=== PATIENT | female | born 1975 | race Caucasian/White ===

== ENCOUNTER → 2019-03-10 16:00 | Outpatient (CLI) | payer OTHER, SELFPAY ==
--- NOTE | 2019-03-10 | DI.MG.S_ITS ---
BILATERAL DIGITAL SCREENING MAMMOGRAM 3D/2D WITH CAD: 03/10/2019 CLINICAL: Routine screening. Comparison is made to exams dated: 10/28/2012 mammogram, 05/01/2011 mammogram - [facility], and 03/26/2008 mammogram - [facility]. The tissue of both breasts is heterogeneously dense. This may lower the sensitivity of mammography. Current study was also evaluated with a Computer Aided Detection (CAD) system. No significant masses, calcifications, or other findings are seen in either breast. There has been no significant interval change. IMPRESSION: NEGATIVE There is no mammographic evidence of malignancy. A 1 year screening mammogram is recommended. This exam was interpreted at Station ID: [id number]. NOTE: For mammograms, a report in lay terms will be sent to the patient. Approximately 15% of breast malignancies will not be visualized mammographically. In the management of a palpable breast mass, a negative mammogram must not discourage biopsy of a clinically suspicious lesion. Electronically Signed By: Leo guillen/benita:03/10/2019 19:16:06 letter sent: Normal Exam ACR BI-RADS Category 1: Negative [id number]
== END ==
PROVIDERS: PCP Nurse Practitioner Family; Visit Provider Nurse Practitioner Family
DX: Z12.31 Encounter for screening mammogram for malignant neoplasm of breast (principal)
CPT/HCPCS: 77063; 77067

== ENCOUNTER → 2019-04-25 10:12 | Outpatient (CLI) | payer OTHER, SELFPAY ==
[2019-04-25 11:28] LABS: Alanine Aminotransferase 11 IU/L (<35); Albumin 4.4 g/dL (3.5-5.0); Albumin Globulin Ratio 1.3 (1.0-2.8); Alkaline Phosphatase 58 U/L (38-126); Aspartate Aminotransferase 16 IU/L (14-36); BUN Creatinine Ratio 12.9 (6-22); Bilirubin Total 0.7 mg/dL (0.2-1.3); Blood Urea Nitrogen 9 mg/dL (7-17); Calcium 9.2 mg/dL (8.4-10.2); Carbon Dioxide 24 mmol/L (22-32); Chloride 105 mmol/L (98-107); Cholesterol 206 mg/dL (140-199); Estimated Glomerular Filt Rate > 60.0 mL/min (>60); Globulin 3.3 g/dL (1.7-4.1); Glucose 87 mg/dL (70-100); HDL Cholesterol 53 mg/dL (40-60); HEMOLYSIS < 15 (0-50); LDL Cholesterol Calculated 133 mg/dL (<100); Potassium 4.3 mmol/L (3.4-5.1); Sodium 140 mmol/L (137-145); Total Protein 7.7 g/dL (6.3-8.2); Triglycerides 98 mg/dL (35-150)
[2019-04-25 11:33] LABS: Hematocrit 32.5 % (36-46); Hemoglobin 10.5 g/dL (12.0-16.0); Mean Corpuscular HGB Conc 32.1 % (30-36); Mean Corpuscular Volume 68.3 fL (80-100); Platelet Count 263 X10^3/uL (150-400); Red Blood Cell Count 4.76 X10^6/uL (4.0-5.2); Red Cell Distribution Width 17.8 % (11.6-14.8); White Blood Cell Count 6.5 X10^3/uL (4.5-11.0)
== END ==
PROVIDERS: PCP Nurse Practitioner Family; Referring Provider Nurse Practitioner Family; Visit Provider Nurse Practitioner Family
DX: Z00.00 Encounter for general adult medical examination without abnormal findings (principal); Z13.6 Encounter for screening for cardiovascular disorders
CPT/HCPCS: 36415; 80053; 80061; 85027

== ENCOUNTER → 2019-04-28 16:14 | Outpatient (CLI) | payer OTHER, SELFPAY ==
[2019-04-28 18:02] LABS: Ferritin 5 ng/mL (6-137)
[2019-04-28 18:16] LABS: HEMOLYSIS < 15 (0-50); Iron 28 ug/dL (37-170)
[2019-04-28 18:30] LABS: Percent Iron Saturation 8 % (15-50); Total Iron Binding Capacity 359 ug/dL (265-497); Transferrin 292 mg/dL (206-381)
[2019-04-28 18:32] LABS: Vitamin B12 347 pg/mL (239-931)
== END ==
PROVIDERS: PCP Nurse Practitioner Family; Referring Provider Nurse Practitioner Family; Visit Provider Nurse Practitioner Family
DX: D64.9 Anemia, unspecified (principal)
CPT/HCPCS: 36415; 82607; 82728; 82746; 83540; 83550

== ENCOUNTER 2019-05-19 12:01 | Day surgery (SDC) | payer OTHER, SELFPAY ==
[2019-05-19] MEDS: SODIUM CHLORIDE 0.9% 1,000 ML 200 ML IV (12:17)
[2019-05-19 12:18] VITALS: BP 113/78; PULSE 72; RESP 20; TEMP 36.6; O2SAT 99; BMI 25.5
--- NOTE | 2019-05-19 13:04 | PM.HP.1 ---
History of Present Illness History of Present Illness Date Patient Seen: 05/19/19 Time Patient Seen: 13:04 Chief complaint: 73756 COLONOSCOPY Narrative: This is a 43-year-old woman with history of anemia with a hemoglobin of 10.5. She has an extensive family history of colon polyps and colon cancer. Her mother has had advanced colon polyps diagnosed at age 50 her mother siblings have had colon polyps and colon cancers diagnosis. The patient has never had a screening colonoscopy. She denies any melena or hematochezia. She denies any unexplained abdominal pain or unexplained weight loss. ROS: Thirteen system review is otherwise negative other than as mentioned below and in HPI. PE: GENERAL: Well groomed and cooperative. Appears stated age. Answers questions promptly and appropriately. Vital signs noted. HENT: Normocephalic, atraumatic. Hearing intact. Oral mucosa is pink and moist. EYES: Conjunctiva pink, sclera white, no periorbital swelling. CARDIOVASCULAR: Regular rate. No pedal edema. RESPIRATORY: Non-tachypneic, breathing comfortably on room air. GASTROINTESTINAL: Abdomen soft and non-distended GENITALURINARY: No flank tenderness. MUSCULOSKELETAL: Equal tone and mass bilaterally. SKIN: Warm, dry, soft, appropriate color for ethnicity. No other lesions, rashes, or wounds. NEURO: Alert and Oriented X 3. No gross sensory deficits, or cognitive issues. PSYCH: Appropriate affect and mood. Patient History Medical History Abnormal Pap smear of cervix (Resolved ~1999) Allergies (Chronic) Chicken pox (Resolved) Depression (Chronic ~1996) Fractures (Resolved) Melanoma (Chronic) Plantar warts (Chronic) Surgical History Anesthesia (Resolved) History of section (Chronic) History of oral surgery (Resolved) History of skin surgery (Resolved) [place] teeth removed (Resolved) Family & Social History Family History Father Cancer Mother Hypertension History of heart disease Social History: household members spouse Tobacco & Substance use: Smoking Status Never smoker alcohol intake never Substance Use Type does not use Meds Home Medications and Allergies Home Medications Medication Instructions Recorded Confirmed Type ferrous sulfate 325 mg (65 mg 325 mg PO .COMPLEX #60 tab 05/01/19 05/19/19 Rx iron) tablet Allergies Allergy/AdvReac Type Severity Reaction Status Date / Time ADHESIVE Allergy Mild Uncoded 05/19/19 12:26 Exam Vital Signs (past 8 hours): - 05/19/19 12:18 Temperature 97.8 F Pulse Rate 72 Respiratory Rate 20 Blood Pressure 113/78 Pulse Oximetry 99 Oxygen Delivery Method Room Air Assessment & Plan Assessment and plan (1) Anemia: Current visit: Yes Status: Acute (2) Family history of colon cancer: Current visit: Yes Status: Acute (3) Family history of colonic polyps: Current visit: Yes Status: Acute Assessment & Plan narrative: Risks and benefits of diagnostic colonoscopy and possible polypectomy were discussed with the patient including risk of bleeding, perforation, need for additional procedures, risks of anesthesia. The patient desires to proceed with the colonoscopy procedure. Time Spent With Patient Time with patient: 15-24 minutes Quality VTE Deep Vein Thrombosis/Pulmonary Embolism Present on Admission: No
[2019-05-19] MEDS: fentaNYL 250 MCG/5 ML INJ IV (13:31)
[2019-05-19] MEDS: MIDAZOLAM 5 MG/5 ML VIAL IV (13:32)
[2019-05-19 13:35] VITALS: BP 109/73; PULSE 67; RESP 11; TEMP 36.5; O2SAT 100
--- NOTE | 2019-05-19 13:38 | PM.OP.ENDO ---
Operative Date/Time/Diagnoses Date of procedure: 05/19/19 Time of procedure: 13:38 Pre-op diagnosis: Anemia, high risk family history of colon cancer and colon polyps Post-op diagnosis: other (Normal colon, high risk family history of colon cancer colon polyps) Procedure & Clinicians Study performed: Diagnostic colonoscopy Same procedure as scheduled: Yes Indications: Anemia, high risk family history of colon cancer colon polyps Surgeon: Kira Guzman Procedure Notes SCOAP/Timeout: Performed Procedure in detail: The patient was brought to the room and placed in left lateral decubitus position with all bony prominences padded. A time-out was performed and then the patient was given procedural sedation starting with 2 mg of Versed and 100 mcg of fentanyl. Total of 4 mg of Versed and 150 micro g of fentanyl were given for the entire procedure. Vitals were monitored throughout the procedure and remained stable. Once adequately sedated the procedure was begun. A rectal exam was performed revealing no abnormalities. The colonoscope was then introduced to the rectum and advanced to the cecum in the usual fashion. The cecum was identified by the appendiceal orifice, the mucosal tri-fold, and the ileocecal valve. The scope was then retracted while rotating side to side and examining each mucosal fold. At the conclusion of the procedure retroflexion was performed and small grade 1 internal hemorrhoids without stigmata of bleeding were seen. The scope was then withdrawn from the rectum the procedure was concluded. The patient tolerated the procedure well and was transferred to the PACU in stable condition. Scope withdrawal time: 12 Sedation minutes: 22 Findings: other findings (Normal colon) Specimen(s): none sent Complications: none Impression: Normal colon Post-procedure Recommendations: Colonscopy in 5 years (Due to high risk family history) Follow up: as needed Disposition: PACU
[2019-05-19 13:40] VITALS: BP 126/71; PULSE 70; RESP 21; O2SAT 100
[2019-05-19 14:03] VITALS: BP 109/72; PULSE 59; TEMP 36.2; O2SAT 100
== END 2019-05-19 14:02 | disposition home or self-care (01) ==
PROVIDERS: PCP Nurse Practitioner Family; Referring Provider Nurse Practitioner Family; Visit Provider Surgery
PROC: 0DJD8ZZ Inspection of Lower Intestinal Tract, Via Natural or Artificial Opening Endoscopic (ICD-10-PCS; CPT 45378; principal; 2019-05-19 13:00)
DX: D64.9 Anemia, unspecified; Z80.0 Family history of malignant neoplasm of digestive organs; K64.0 First degree hemorrhoids
CPT/HCPCS: 45378; 99152; J2250; J3010

== ENCOUNTER → 2019-05-21 12:39 | Outpatient (CLI) | payer OTHER, SELFPAY ==
[2019-05-21 13:09] LABS: Add Manual Diff / Slide Review NO; Basophils Absolute Auto 100 /uL (0-100); Eosinophils Absolute Auto 100 /uL (0-450); Eosinophils Percent Auto 2.3 % (2-4); Hematocrit 31.1 % (36-46); Lymphocytes Absolute Auto 1800 /uL (1100-4500); Lymphocytes Percent Auto 31.2 % (25-40); Mean Corpuscular HGB Conc 32.1 % (30-36); Mean Corpuscular Hemoglobin 22.8 PG (26-34); Mean Corpuscular Volume 71.1 fL (80-100); Monocytes Absolute Auto 400 /uL (0-900); Monocytes Percent Auto 6.5 % (3-14); Neutrophils Absolute Auto 3400 /uL (1500-7000); Platelet Count 270 X10^3/uL (150-400); Red Blood Cell Count 4.38 X10^6/uL (4.0-5.2); Red Cell Distribution Width 19.8 % (11.6-14.8); White Blood Cell Count 5.7 X10^3/uL (4.5-11.0)
[2019-05-21 13:25] LABS: Appearance Urine UA CLEAR; Bilirubin Urine UA NEGATIVE (NEGATIVE); Color Urine UA YELLOW; Glucose Urine UA NEGATIVE (Negative); Ketones Urine UA TRACE (NEGATIVE); Leukocyte Esterase Urine UA NEGATIVE (NEGATIVE); Nitrite Urine UA NEGATIVE (Negative); Occult Blood Urine UA 1+ (Negative); Protein Urine UA NEGATIVE (Negative); Specific Gravity Urine UA >=1.030 (1.000-1.035); Urobilinogen Urine UA 0.2 E.U./dL (0.2)
[2019-05-21 13:35] LABS: Bacteria Urine Many (>30); Culture Indicated Urine Cult Not Indicated; RBC Urine 0-1/HPF (0-5/HPF); Squamous Epithelial Cell Urine 5-10 /HPF (0-5/HPF); WBC Urine 1-5/HPF (0-5/HPF)
[2019-05-21 14:55] LABS: Ferritin 13 ng/mL (6-137)
[2019-05-29 11:08] LABS: t-Transglutaminase IgA <2 U/mL (0-3)
== END ==
PROVIDERS: PCP Nurse Practitioner Family; Referring Provider Nurse Practitioner Family; Visit Provider Nurse Practitioner Family
DX: D64.9 Anemia, unspecified (principal)
CPT/HCPCS: 36415; 81001; 82728; 83013; 83516; 85025

== ENCOUNTER → 2019-05-22 13:59 | Outpatient (CLI) | payer OTHER, SELFPAY ==
[2019-05-22 14:31] LABS: Reticulocyte Count, Percent 1.6 % (1.06-2.63)
== END ==
PROVIDERS: PCP Nurse Practitioner Family; Visit Provider Nurse Practitioner Family
DX: D64.9 Anemia, unspecified (principal)
CPT/HCPCS: 85045

== ENCOUNTER → 2019-05-25 11:19 | Outpatient (CLI) | payer OTHER, SELFPAY ==
--- NOTE | 2019-05-25 11:20 | DI.US.S_ITS ---
PROCEDURE: US PELVIC COMPLETE INDICATIONS: HEAVY MENSES, ANEMIA, NORMAL COLONOSCOPY TECHNIQUE: Real-time scanning was performed of the pelvic organs, with image documentation. Additional endovaginal scanning was necessary due to incomplete visualization of the adnexal and endometrial structures by transabdominal scanning. COMPARISON: None. FINDINGS: Transabdominal scanning: Limited scanning through the kidneys shows no hydronephrosis. No pathologic free abdominal or pelvic fluid. Endovaginal scanning: Uterus: Uterus is normal in size at 11.4 x 4.2 x 6.4 cm. The endometrium measures 4.2 mm in combined thickness. Subserosal fibroid measuring up to 2.2 cm an intramural fibroid measuring up to 2.9 cm. Ovaries: Ovaries are normal bilaterally. No adnexal masses seen. IMPRESSION: 1. Uterine fibroids, largest measuring up to 2.9 cm. Dictated by: Pablito PINK Interpreted: Marissa Navarro MD on 05/25/2019 at 12:47 Approved by: Marissa Navarro M.D. on 05/25/2019 at 14:16
--- NOTE | 2019-05-25 11:20 | DI.US.S_ITS ---
PROCEDURE: US ABDOMEN COMPLETE INDICATIONS: IRON DEF ANEMIA, ETIOLOGY UNCLEAR TECHNIQUE: Real-time scanning was performed of the abdominal and retroperitoneal organs, with image documentation. COMPARISON: None. FINDINGS: Liver: Liver is normal in size and homogeneous in echotexture. Gallbladder: No gallstones identified. Normal gallbladder wall. No pericholecystic fluid. Negative sonographic Mendoza sign. Biliary ducts: Intrahepatic bile ducts are non-dilated. Extrahepatic bile duct caliber measures 4.3 mm. Normal is 6-7 mm or less in diameter, or 10 mm or less post-cholecystectomy. Pancreas: Visualized portions of the pancreas are sonographically normal. Spleen: Spleen is normal in size and homogeneous in echotexture. Kidneys: Kidneys are normal in size and echotexture. Right kidney measures 9.8 cm long; left kidney measures 10.9 cm long. No hydronephrosis or nephrolithiasis. No solid masses. Aorta: Visualized aorta is normal in caliber at less than 3 cm. Iliacs: Proximal common iliac arteries are normal in caliber at less than 2.5 cm. IVC: Intrahepatic inferior vena cava is patent. Miscellaneous: No free abdominal fluid. IMPRESSION: No source for anemia identified. Dictated by: Pablito Grossman [facility] Interpreted: Marissa Navarro MD on 05/25/2019 at 12:48 Approved by: Marissa Navarro M.D. on 05/25/2019 at 14:16
[2019-05-28 22:58] LABS: H pylori Breath Test Negative (Negative)
--- NOTE | 2019-06-04 11:51 | ONC.MSW ---
Description: Initial Referral Navigation Activity: Reviewed pt's referral for acuity, medical status and immediate needs. Forwarded to schedulers for next available initial visit time.
== END ==
PROVIDERS: PCP Nurse Practitioner Family; Referring Provider Nurse Practitioner Family; Visit Provider Nurse Practitioner Family
DX: D50.9 Iron deficiency anemia, unspecified (principal); N92.0 Excessive and frequent menstruation with regular cycle; D25.1 Intramural leiomyoma of uterus
CPT/HCPCS: 76700; 76830; 76856; 83013

== ENCOUNTER → 2019-06-13 11:35 | Outpatient (CLI) | payer OTHER, SELFPAY ==
[2019-06-13 11:40] LABS: Bacteria Urine None Seen; RBC Urine None Seen (0-5/HPF); WBC Urine None Seen (0-5/HPF)
[2019-06-13 12:42] LABS: Add Manual Diff / Slide Review NO; Basophils Absolute Auto 100 /uL (0-100); Basophils Percent Auto 0.6 % (0-2); Eosinophils Absolute Auto 100 /uL (0-450); Eosinophils Percent Auto 1.2 % (2-4); Hematocrit 38.2 % (36-46); Hemoglobin 12.4 g/dL (12.0-16.0); Lymphocytes Absolute Auto 1500 /uL (1100-4500); Lymphocytes Percent Auto 19.2 % (25-40); Mean Corpuscular HGB Conc 32.6 % (30-36); Mean Corpuscular Hemoglobin 24.8 PG (26-34); Mean Corpuscular Volume 76.1 fL (80-100); Monocytes Absolute Auto 400 /uL (0-900); Monocytes Percent Auto 5.7 % (3-14); Neutrophils Absolute Auto 5800 /uL (1500-7000); Neutrophils Percent Auto 73.3 % (50-75); Platelet Count 247 X10^3/uL (150-400); Red Blood Cell Count 5.01 X10^6/uL (4.0-5.2); White Blood Cell Count 7.9 X10^3/uL (4.5-11.0)
[2019-06-13 12:44] LABS: Appearance Urine UA CLEAR; Bilirubin Urine UA NEGATIVE (NEGATIVE); Color Urine UA YELLOW; Glucose Urine UA NEGATIVE (Negative); Ketones Urine UA NEGATIVE (NEGATIVE); Leukocyte Esterase Urine UA NEGATIVE (NEGATIVE); Nitrite Urine UA NEGATIVE (Negative); Occult Blood Urine UA NEGATIVE (Negative); Protein Urine UA NEGATIVE (Negative); Specific Gravity Urine UA <=1.005 (1.000-1.035); Urobilinogen Urine UA 0.2 E.U./dL (0.2)
[2019-06-13 12:51] LABS: Squamous Epithelial Cell Urine 0-1 /HPF (0-5/HPF)
[2019-06-13 12:52] LABS: Culture Indicated Urine Cult Not Indicated
[2019-06-13 13:08] LABS: Anisocytosis 2+; Ovalocytes 1+
== END ==
PROVIDERS: PCP Nurse Practitioner Family; Referring Provider Nurse Practitioner Family; Visit Provider Nurse Practitioner Family
DX: D64.9 Anemia, unspecified (principal)
CPT/HCPCS: 36415; 81001; 85025

== ENCOUNTER → 2019-06-15 13:52 | Oncology outpatient (ONC) | payer OTHER, SELFPAY ==
--- NOTE | 2019-06-15 14:49 | ONC.CONS ---
History of Present Illness - Data of Consult Patient: new to practice Consult date: 06/15/19 Requesting Physician: AVINASH Dimas Primary Care Provider: AVINASH Dimas - Consult Narrative Reason for consult: Anemia, iron deficient Narrative: Vee Caraballo is a 43 year old female. Patient has family history of colon cancer. She said her maternal aunt and maternal uncle both were diagnosed with colon cancer in their 70s. Patient's father was diagnosed with melanoma. According to the medical records, patient was found to have microcytic hypochromic anemia on 04/25/2019 with hemoglobin level 10.5, hematocrit 32.5, MCV 68.3. Iron panel from April the 07/22/2019 showed iron 28, total iron binding capacity 359, iron saturation 8% transferrin 292, ferritin 5. According to patient, patient has significant heavy menstrual periods. That is assumed to be the reason for the iron deficiency anemia. Patient has already been started on oral progesterone about a month ago for control of the menstrual bleeding. In addition patient has been started on oral easy iron 1 pill twice daily since May of 2019. Patient said that she has been making progress. However, this past weekend, she felt sick again. She had heavy periods about 05/07/2019. She said she was losing so much blood that she feel quite fatigued. Gradually she had felt better but yesterday, she felt significant that again. She said she was really tired. She could not really sleep. Her stomach was growing. She has a lot of nausea like . She denies any fever or chills. She denies any cough. No night sweats. She admitted that she has received the letter informing her of potential exposure to COVID-19 after she had a in ultrasound study of the pelvis on 05/25/2019. Home Medications and Allergies Home Medications Medication Instructions Recorded Confirmed Type ascorbic acid (vitamin C) [Vitamin 500 mg PO BID 06/15/19 06/15/19 History C] ferrous sulfate 325 mg PO BID 06/15/19 History Allergies Allergy/AdvReac Type Severity Reaction Status Date / Time ADHESIVE Allergy Mild Uncoded 05/19/19 12:26 Medical History - Medical, Surgical, Family History Medical History: Medical History (Last Updated 06/12/19 @ 15:32 by AVINASH Dimas) Abnormal Pap smear of cervix Onset Date: ~1999 Allergies Chicken pox Depression Onset Date: ~1996 Fractures Melanoma Plantar warts Uterine fibroid Surgical History: Surgical History (Last Reviewed 05/19/19 @ 13:05 by Kira Guzman MD) Anesthesia History of section History of oral surgery History of skin surgery [place] teeth removed Family History: Family History (Last Reviewed 05/19/19 @ 13:05 by Kira Guzman MD) Father Cancer Mother Hypertension History of heart disease - Social History Smoking Status: Never smoker Review of Systems All systems PM: reviewed and no additional remarkable complaints except as stated (those mentioned in HPI, Interval History and SR above.) Exam Vital signs: 06/15/19 18:18 Last Vital Signs Temp 98.7 F 06/15/19 15:12 Pulse 80 06/15/19 15:12 Resp 16 06/15/19 15:12 BP 127/86 06/15/19 15:12 Pulse Ox 98 06/15/19 15:12 Narrative: ECOG 1 Vitals above reviewed Constitutional: WDWN, well nourished, and well groomed. NAD. Pleasant and cooperative. HEENT: NCAT, EOMI, PERRLA, anicteric sclera. Neck: Supple and symmetrical. No palpable thyromegaly or lymphadenopathy. No palpable masses. Respiratory: No use of accessory muscles Musculoskeletal: normal gait and station Neurological: AOx3, CN II-XII grossly intact. No focal motor or sensory deficit. Psychiatric: Normal judgment and insight, normal memory (recent and remote), normal mood and affect. Results - Labs CBC from 06/13/2019, WBC 7.9, RBC 5.1, hemoglobin 12.4, hematocrit 38.2, MCV 76.1, platelets 247. Assessment and Plan (1) Exposure to COVID-19 virus She has clear history of exposure to COVID-19. Will check the swab COVID-19 virus test. (2) Iron deficiency anemia Overview: 43-year-old female with heavy menstrual periods was found to have iron deficiency anemia since April 2019. She is currently on oral iron pills easy iron. She tolerated very well. Assessment: I reviewed the CBC from 06/13/2019 compared to results of April 2019. Patient's hemoglobin level has normalized from 10.5-12.4, hematocrit also has normalized from 32.5% to 38.2%, at the MCV has improved significantly from 68.3-76.1. Platelet counts have remained within the normal range. I talked with her that these tests results are consistent with response to oral iron pills. I do not think that intravenous iron infusion is necessary at this point. I would recommend continue current treatment without any changes. I cautioned her that if she develops severe iron deficiency anemia, she needs to call us for follow-up visit and for possible intravenous iron infusion. In addition, she needs to follow-up with her OBGYN. Plan: Continue oral iron Follow up with [facility] Call for follow up
[2019-06-15 15:12] VITALS: BP 127/86; PULSE 80; RESP 16; TEMP 37.1; O2SAT 98
[2019-06-16 22:38] LABS: COVID19 Sendout Not Detected (Not Detected)
--- NOTE | 2019-06-18 10:51 | PC.NURSE ---
Pt called inquiring about recent COVID results, not detected results given to pt over the phone.
== END ==
LOC: ONC 13:54
PROVIDERS: PCP Nurse Practitioner Family; Referring Provider Nurse Practitioner Family; Visit Provider Internal Medicine Hematology & Oncology
DX: Z20.828 Contact with and (suspected) exposure to other viral communicable diseases (principal); D50.9 Iron deficiency anemia, unspecified; N92.0 Excessive and frequent menstruation with regular cycle; Z80.0 Family history of malignant neoplasm of digestive organs
CPT/HCPCS: 87635; 99204; 99214

== ENCOUNTER → 2019-07-29 13:02 | Outpatient (CLI) | payer OTHER, SELFPAY ==
[2019-07-29 15:24] LABS: Add Manual Diff / Slide Review NO; Basophils Absolute Auto 0 /uL (0-100); Basophils Percent Auto 0.6 % (0-2); Eosinophils Absolute Auto 100 /uL (0-450); Eosinophils Percent Auto 0.9 % (2-4); Hematocrit 39.7 % (36-46); Hemoglobin 13.5 g/dL (12.0-16.0); Lymphocytes Absolute Auto 1700 /uL (1100-4500); Lymphocytes Percent Auto 23.9 % (25-40); Mean Corpuscular HGB Conc 33.9 % (30-36); Mean Corpuscular Volume 82.6 fL (80-100); Monocytes Absolute Auto 400 /uL (0-900); Monocytes Percent Auto 5.5 % (3-14); Neutrophils Absolute Auto 4900 /uL (1500-7000); Neutrophils Percent Auto 69.1 % (50-75); Platelet Count 209 X10^3/uL (150-400); Red Cell Distribution Width 20.8 % (11.6-14.8); White Blood Cell Count 7.1 X10^3/uL (4.5-11.0)
[2019-07-29 15:28] LABS: HEMOLYSIS < 15 (0-50); Iron 159 ug/dL (37-170)
[2019-07-29 15:39] LABS: Anisocytosis 2+; Percent Iron Saturation 51 % (15-50); Poikilocytosis 2+; Total Iron Binding Capacity 310 ug/dL (265-497); Transferrin 234 mg/dL (206-381)
[2019-07-29 15:40] LABS: Ovalocytes 1+
[2019-07-29 16:05] LABS: Ferritin 17 ng/mL (6-137)
== END ==
PROVIDERS: PCP Nurse Practitioner Family; Referring Provider Nurse Practitioner Family; Visit Provider Nurse Practitioner Family
DX: D50.9 Iron deficiency anemia, unspecified (principal)
CPT/HCPCS: 36415; 82728; 83540; 83550; 85025

== ENCOUNTER → 2019-08-04 15:10 | Outpatient (CLI) | payer OTHER, SELFPAY ==
--- NOTE | 2019-08-04 15:12 | DI.RAD.S_ITS ---
PROCEDURE: XR CHEST 2V INDICATIONS: unable to get deep breath TECHNIQUE: 2 views of the chest were acquired. COMPARISON: None. FINDINGS: Surgical changes and devices: None. Lungs and pleura: Lungs are clear. No pleural effusions or pneumothorax. Mediastinum: Mediastinal contours are normal. Heart size is normal. Bones and chest wall: No suspicious bony abnormalities. Soft tissues appear unremarkable. IMPRESSION: Normal for age, source of current dyspnea symptoms is not seen. Dictated by: Gualberto Rojo M.D. on 08/04/2019 at 15:35 Approved by: Gualberto Rojo M.D. on 08/04/2019 at 15:35
== END ==
PROVIDERS: PCP Nurse Practitioner Family; Referring Provider Nurse Practitioner Family; Visit Provider Nurse Practitioner Family
DX: R06.02 Shortness of breath (principal)
CPT/HCPCS: 71046

== ENCOUNTER → 2019-08-31 11:04 | Outpatient (CLI) | payer OTHER, SELFPAY ==
[2019-09-01 08:35] LABS: COVID19 Sendout Not Detected (Not Detect)
== END ==
PROVIDERS: PCP Nurse Practitioner Family; Visit Provider Physician Assistant
DX: Z01.812 Encounter for preprocedural laboratory examination (principal)
CPT/HCPCS: 87635

== ENCOUNTER → 2020-01-01 14:34 | Outpatient (CLI) | payer OTHER, SELFPAY ==
[2020-01-03 10:19] LABS: COVID19 Sendout Not Detected (Not Detect)
== END ==
PROVIDERS: PCP Nurse Practitioner Family; Visit Provider Physician Assistant
DX: Z11.59 Encounter for screening for other viral diseases (principal)
CPT/HCPCS: 87635

== ENCOUNTER → 2020-01-04 11:53 | Outpatient (CLI) | payer OTHER, SELFPAY ==
--- NOTE | 2020-01-08 16:23 | PM.PFT.1 ---
Pulmonary Function Test Referral & Results Date Patient Seen: 01/04/20 Requesting provider: Renee Rea Results: The spirometry demonstrates an FVC of 5.99 L which is 140% of predicted. The FEV1 was measured at 4.88 L which is 142% of predicted. The FEV1/FVC ratio was 82 which is 100% of predicted. Lung volumes show an SVC of 5.88 L which is 151% of predicted. The diffusing capacity was measured at 30.07 which is 97% of predicted. The maximum voluntary ventilation was normal Interpretation: This study demonstrates normal pulmonary function
== END ==
PROVIDERS: PCP Nurse Practitioner Family; Referring Provider Internal Medicine Cardiovascular Disease; Visit Provider Internal Medicine Cardiovascular Disease
DX: R06.02 Shortness of breath (principal)
CPT/HCPCS: 94010; 94726; 94729

== ENCOUNTER → 2020-01-04 11:54 | Outpatient (CLI) | payer OTHER, SELFPAY ==
--- NOTE | 2020-01-04 | DI.ECHO.S_ITS ---
[facility] +---------+ : : [address] : : : : [id number] : : : : Phone: [phone]+ Echocardiogram Report + + :Name: DANNIE SANCHES Study Date: 01/04/2020 Height: 69 in : :[facility] Weight: 175 lb : : Gender: Female BSA: 2.0 m2 : :: 1975 Age: 44 yrs BP: 124/84 mmHg: :Reason For Study: SHORTNESS OF BREATH, PALPITATIONS : :Ordering Physician: ARIAN, : :ERIKA Performed By: Gala Nicole : :Referring: ERIKA DON : + + Interpretation Summary The left ventricle is normal in size and wall thickness. The ejection fraction is estimated to be 60-65%. The right ventricle is normal in size and function. No significant valvular pathology seen. The IVC is dilated (diameter is greater than 2.1 cm) yet it collapses greater than 50% with a sniff. This suggests a right atrial pressure of 8 mm Hg. Procedure: A two-dimensional transthoracic echocardiogram with color flow and Doppler was performed. The study quality was technically adequate. There is no prior echocardiogram noted for this patient. The heart rate ranged between 43-65 bpm during the study. The patient was in normal sinus rhythm during the exam. Left Ventricle: The left ventricle is normal in size and wall thickness. There is no thrombus. The ejection fraction is estimated to be 60-65%. There are no focal wall motion abnormalities. Diastolic parameters suggest probable normal left ventricular diastolic function and normal filling pressures. Right Ventricle: The right ventricle is normal in size and function. Atria: The left atrial size is normal. Right atrial size is normal. There is no Doppler evidence for an interatrial shunt. Mitral Valve: The mitral valve is normal in structure and function. There is trace mitral regurgitation. Aortic Valve: The aortic valve is trileaflet. The aortic valve opens well. There is no aortic valve stenosis. No aortic regurgitation is present. Tricuspid Valve: The tricuspid valve is normal in structure and function. Pulmonary artery pressures cannot be estimated because of the lack of a measurable TR jet velocity but the IVC suggests a CVP of around 8 mmHg. There is trace tricuspid regurgitation. Pulmonic Valve: The pulmonic valve is not well visualized. There is no pulmonic valvular regurgitation. Great Vessels: The aortic root is normal size. The dimensions of the ascending aorta are normal. The IVC is dilated (diameter is greater than 2.1 cm) yet it collapses greater than 50% with a sniff. This suggests a right atrial pressure of 8 mm Hg. Pericardium/ Pleura There is no pericardial effusion. There is no pleural effusion. MMode/2D Measurements & Calculations LVIDd: 4.8 cm LVOT diam: 2.1 cm LVIDs: 3.1 cm Ao root diam: 2.7 cm FS: 36.3 % asc Aorta Diam: 2.6 cm EPSS: 0.47 cm Ao Arch Diam (Prox Trans): 2.2 cm IVSd: 0.80 cm LVPWd: 0.68 cm LV allen. diameter/BSA (cm/m^2): 2.5 LV sys. diameter/BSA (cm/m^2): 1.6 LA A2 area: 19.8 cm2 RA long axis: 4.8 cm LA A4 area: 16.9 cm2 RA area: 16.9 cm2 LA length (vol): 5.0 cm RA vol: 50.2 ml LA vol: 56.7 ml RA : 25.7 ml/m2 LA vol index: 29.0 ml/m2 IVC diam: 2.4 cm RVD1 (basal): 3.4 cm TAPSE: 2.6 cm Doppler Measurements & Calculations Ao V2 max: 163.9 cm/sec LVOT Max Jame: 101.4 cm/sec Ao V2 mean: 110.9 cm/sec LV V1 max P.1 mmHg Ao max P.8 mmHg LV V1 VTI: 23.4 cm Ao mean P.5 mmHg SPRING(I,D): 2.2 cm2 Ao V2 VTI: 36.7 cm SPRING(V,D): 2.2 cm2 sev ratio: 0.64 SPRING indexed to BSA (cm^2/m^2): 1.1 MV E max jame: 87.8 cm/sec PA V2 max: 80.9 cm/sec MV A max jame: 75.0 cm/sec PA V2 mean: 50.8 cm/sec MV E/A: 1.2 PA mean P.2 mmHg Med Peak E' Jame: 12.0 cm/sec PA pr(Accel): 19.1 mmHg E/E' med: 7.3 Lat Peak E' Jame: 12.8 cm/sec E/E' lat: 6.9 E/e' average: 7.1 MV dec time: 0.22 sec SV(LVOT): 81.3 ml Reading Physician:01:23 PM
--- NOTE | 2020-01-04 20:28 | DI.NM.S_ITS ---
DATE OF SERVICE: 01/04/2020 PROCEDURE: Exercise stress test. INDICATION: Palpitation. EXERCISE STRESS TEST: The patient walked on Kaz protocol under the supervision of an attending staff. She walked on Kaz protocol for 14 minutes 03 seconds, achieved 14.8 METs of workload, 93 percent of target heart rate and normal blood pressure. No chest pain or anginal symptoms. Baseline EKG revealed sinus rhythm with RSR-complex in V1 to V2. During stress, there were no convincing ischemic changes. No significant arrhythmias seen. CONCLUSION: Exercise stress test is negative for inducible ischemia. Excellent exercise tolerance. She walked on Kaz protocol for 14 minutes 03 seconds. No ischemic electrocardiographic changes. No significant arrhythmias. Normal hemodynamic response. Overall, this is a low-risk exercise stress test. Vee Caraballo - Lam/pollo doc#: [id number]/job#: [id number] dd: 01/04/2020 17:08:00 dt: 01/04/2020 20:06:00 DICTATING /COPIES TO: Renee Rea MD COPIES MNE: SELENA;
== END ==
PROVIDERS: PCP Nurse Practitioner Family; Referring Provider Internal Medicine Cardiovascular Disease; Visit Provider Internal Medicine Cardiovascular Disease
DX: R00.2 Palpitations (principal); R06.02 Shortness of breath
CPT/HCPCS: 93017; 93306

== ENCOUNTER → 2020-01-05 07:52 | Outpatient (CLI) | payer OTHER, SELFPAY ==
[2020-01-05 09:49] LABS: Cholesterol 189 mg/dL (140-199); HDL Cholesterol 33 mg/dL (40-60); LDL Cholesterol Calculated 134 mg/dL (<100); Magnesium 2.1 mg/dL (1.6-2.3); Triglycerides 112 mg/dL (35-150)
[2020-01-05 09:50] LABS: NT-proBNP (BNP-Adult 18+) 86 pg/mL (<125)
[2020-01-05 10:25] LABS: Thyroid Stimulating Hormone 3.45 uIU/mL (0.47-4.68)
== END ==
PROVIDERS: PCP Nurse Practitioner Family; Referring Provider Internal Medicine Cardiovascular Disease; Visit Provider Internal Medicine Cardiovascular Disease
DX: R00.2 Palpitations (principal); R06.2 Wheezing; E61.1 Iron deficiency
CPT/HCPCS: 36415; 80061; 83735; 83880; 84443

== ENCOUNTER → 2021-08-29 09:12 | Outpatient (CLI) | payer OTHER, SELFPAY ==
--- NOTE | 2021-08-29 09:15 | DI.RAD.S_ITS ---
PROCEDURE: XR LUMBAR SPINE MIN 4V INDICATIONS: eval BUE and BLE paresthesia TECHNIQUE: Five views of the lumbar spine were acquired, including bilateral oblique views. COMPARISON: None. FINDINGS: Bones: 5 nonrib-bearing vertebrae are present. There is normal bony alignment. No vertebral body compression fractures. No suspicious bony lesions. Soft tissues: Overlying bowel gas pattern is normal. No suspicious soft tissue calcifications. Oblique images: No pars defects. IMPRESSION: No compression fracture or spondylolisthesis in lumbar spine. No pars defects. Dictated by: Reynold Harmon M.D. on 08/29/2021 at 11:04 Approved by: Reynold Harmon M.D. on 08/29/2021 at 11:05
--- NOTE | 2021-08-29 09:15 | DI.RAD.S_ITS ---
PROCEDURE: XR CERVICAL SPINE 4V OR 5V INDICATIONS: eval BUE and BLE paresthesia TECHNIQUE: 5 views of the cervical spine acquired. COMPARISON: None. FINDINGS: Bones: No fractures or dislocations to the C7 level. Straightening of cervical curvature. Normal alignment. There is mild degenerative disease at C5-C6 and C6-C7. Oblique images demonstrate no bony foraminal stenoses. Soft tissues: No prevertebral soft tissue swelling. IMPRESSION: Mild degenerative disc disease at C5-C6 and C6-C7. Dictated by: Norma Gomez M.D. on 08/29/2021 at 17:32 Approved by: Norma Gomez M.D. on 08/30/2021 at 9:11
[2021-08-29 10:34] LABS: Hemoglobin 14.3 g/dL (12.0-16.0); Mean Corpuscular HGB Conc 34.9 % (30-36); Mean Corpuscular Hemoglobin 29.6 PG (26-34); Mean Corpuscular Volume 84.8 fL (80-100); Platelet Count 209 X10^3/uL (150-400); Red Blood Cell Count 4.84 X10^6/uL (4.0-5.2); White Blood Cell Count 5.1 X10^3/uL (4.5-11.0)
[2021-08-29 10:51] LABS: HEMOLYSIS < 15 (0-50); Iron 87 ug/dL (37-170)
[2021-08-29 11:03] LABS: Percent Iron Saturation 32 % (15-50); Total Iron Binding Capacity 276 ug/dL (265-497); Transferrin 210 mg/dL (206-381)
[2021-08-29 11:16] LABS: Hemoglobin A1C% w Est Avg Glu 5.1 % (4.0-6.0)
[2021-08-29 11:24] LABS: TSH w/ Reflex to FT4 2.42 uIU/mL (0.47-4.68)
[2021-08-29 11:28] LABS: Ferritin 44 ng/mL (6-137)
[2021-08-29 11:42] LABS: Vitamin B12 Reflex MMA if <400 308 pg/mL (239-931)
[2021-08-31 02:43] LABS: Methylmalonic Acid,Serum 207 nmol/L (0-378)
== END ==
PROVIDERS: PCP Registered Nurse Diabetes Educator; Referring Provider Registered Nurse Diabetes Educator; Visit Provider Registered Nurse Diabetes Educator
DX: M50.322 Other cervical disc degeneration at C5-C6 level (principal); R20.2 Paresthesia of skin; D50.9 Iron deficiency anemia, unspecified
CPT/HCPCS: 36415; 72050; 72110; 82607; 82728; 83036; 83540; 83550; 83921; 84443; 85027

== ENCOUNTER 2021-10-19 13:10 | Outpatient (CLI) | payer OTHER, SELFPAY | END 2021-10-23 13:02 | disposition home or self-care (01) | LOC: PHYS 13:13 | PROVIDERS: Family Provider Registered Nurse Diabetes Educator; PCP Registered Nurse Diabetes Educator; Referring Provider Registered Nurse Diabetes Educator; Visit Provider Registered Nurse Diabetes Educator | DX: R20.2 Paresthesia of skin (principal) | CPT/HCPCS: 95886; 95911 ==

== ENCOUNTER → 2022-07-02 12:03 | Outpatient (CLI) | payer OTHER, SELFPAY ==
[2022-07-02 14:09] LABS: Add Manual Diff / Slide Review NO; Basophils Absolute Auto 100 /uL (0-100); Basophils Percent Auto 0.8 % (0-2); Eosinophils Absolute Auto 400 /uL (0-450); Eosinophils Percent Auto 4.4 % (2-4); Hematocrit 38.9 % (36-46); Hemoglobin 13.4 g/dL (12.0-16.0); Lymphocytes Absolute Auto 1900 /uL (1100-4500); Lymphocytes Percent Auto 21.9 % (25-40); Mean Corpuscular HGB Conc 34.4 % (30-36); Mean Corpuscular Volume 84.3 fL (80-100); Monocytes Absolute Auto 500 /uL (0-900); Monocytes Percent Auto 5.3 % (3-14); Neutrophils Absolute Auto 5800 /uL (1500-7000); Neutrophils Percent Auto 67.6 % (50-75); Platelet Count 242 X10^3/uL (150-400); Red Blood Cell Count 4.62 X10^6/uL (4.0-5.2); Red Cell Distribution Width 13.5 % (11.6-14.8); White Blood Cell Count 8.6 X10^3/uL (4.5-11.0)
== END ==
PROVIDERS: Family Provider Registered Nurse Diabetes Educator; PCP Registered Nurse Diabetes Educator; Referring Provider Family Medicine; Visit Provider Family Medicine
DX: K62.5 Hemorrhage of anus and rectum (principal)
CPT/HCPCS: 36415; 85025

== ENCOUNTER → 2023-05-08 07:44 | Outpatient (CLI) | payer OTHER, SELFPAY ==
[2023-05-08 08:12] LABS: Hematocrit 40.2 % (36-46); Hemoglobin 13.9 g/dL (12.0-16.0); Mean Corpuscular HGB Conc 34.6 % (30-36); Mean Corpuscular Hemoglobin 29.7 PG (26-34); Mean Corpuscular Volume 85.9 fL (80-100); Platelet Count 251 X10^3/uL (150-400); Red Blood Cell Count 4.68 X10^6/uL (4.0-5.2); Red Cell Distribution Width 13.9 % (11.6-14.8); White Blood Cell Count 7.6 X10^3/uL (4.5-11.0)
[2023-05-08 08:39] LABS: Alanine Aminotransferase 13 IU/L (<35); Albumin 4.3 g/dL (3.5-5.0); Albumin Globulin Ratio 1.3 (1.0-2.8); Alkaline Phosphatase 54 U/L (38-126); Aspartate Aminotransferase 20 IU/L (14-36); Bilirubin Total 1.1 mg/dL (0.2-1.3); Blood Urea Nitrogen 10 mg/dL (7-17); Calcium 8.8 mg/dL (8.4-10.2); Carbon Dioxide 28 mmol/L (22-32); Chloride 107 mmol/L (98-107); Cholesterol 211 mg/dL (140-199); Estimated Glomerular Filt Rate > 60 mL/min (>60); Globulin 3.3 g/dL (1.7-4.1); Glucose 90 mg/dL (70-100); HDL Cholesterol 44 mg/dL (40-60); HEMOLYSIS < 15 (0-50); LDL Cholesterol Calculated 148 mg/dL (<100); Potassium 4.3 mmol/L (3.4-5.1); Sodium 139 mmol/L (137-145); Total Protein 7.6 g/dL (6.3-8.2); Triglycerides 93 mg/dL (35-150)
[2023-05-08 08:56] LABS: TSH w/ Reflex to FT4 2.85 uIU/mL (0.47-4.68)
== END ==
PROVIDERS: Family Provider Registered Nurse Diabetes Educator; PCP Registered Nurse Diabetes Educator; Referring Provider Registered Nurse Diabetes Educator; Visit Provider Registered Nurse Diabetes Educator
DX: Z00.00 Encounter for general adult medical examination without abnormal findings (principal)
CPT/HCPCS: 36415; 80053; 80061; 84443; 85027

== ENCOUNTER → 2023-11-01 12:06 | Outpatient (CLI) | payer OTHER, SELFPAY ==
--- NOTE | 2023-11-01 12:15 | DI.US.S_ITS ---
PROCEDURE: US PELVIC COMPLETE INDICATIONS: rule out anatomic causes of bleeding, evaluate IUD position TECHNIQUE: Real-time scanning was performed of the pelvic organs, with image documentation. Additional endovaginal scanning was necessary due to incomplete visualization of the adnexal and endometrial structures by transabdominal scanning. COMPARISON: [facility], , US PELVIC COMPLETE, 05/25/2019, 11:42. FINDINGS: Uterus: Uterus is anteverted and normal in size at 8.2 x 6.4 x 4.8 cm. The myometrium is homogeneous. The endometrium measures 15 mm combined thickness. Endometrial polyp versus submucosal fibroid measuring 1.8 x 2.0 x 1.8 cm. Intrauterine device within the endometrium, however displaced by the aforementioned fibroid versus polyp. Additional mid anterior intramural fibroid measuring 1.5 x 1.6 x 1.3 cm, this previously measured 2.9 x 2.2 x 1.9 cm. The 2.2 cm fibroid seen on prior exam is not visualized on current exam. Ovaries: Not well seen secondary to bowel gas. Other: No pathologic free abdominal or pelvic fluid. IMPRESSION: Submucosal fibroid versus endometrial polyp measuring 2.0 cm. Recommend short-term follow-up ultrasound or endometrial sampling for further evaluation. Intrauterine device in place within the endometrium, displaced by the aforementioned submucosal fibroid versus polyp. Endometrium is prominent measuring 15 mm. Ovaries are not seen. We strive to produce accurate, complete, and clear reports of imaging services. To assist us in improving patient care, this report was composed using standard report templates and voice recognition software. Therefore, it may contain abnormal punctuation, insertions and/or omissions. Occasional wrong-word or sound-alike substitutions may occur. Though we review the report and make efforts to correct it, we do recommend that the report be read carefully in proper context to recognize any text inaccuracies. Dictated by: Jamil Forbes M.D. on 11/01/2023 at 14:48 Approved by: Jamil Forbes M.D. on 11/01/2023 at 14:52
== END ==
LOC: US 12:07
PROVIDERS: Family Provider Registered Nurse Diabetes Educator; PCP Registered Nurse Diabetes Educator; Referring Provider Student in an Organized Health Care Education/Training Program; Visit Provider Student in an Organized Health Care Education/Training Program
DX: N93.9 Abnormal uterine and vaginal bleeding, unspecified (principal); R93.89 Abnormal findings on diagnostic imaging of other specified body structures; T83.32XA Displacement of intrauterine contraceptive device, initial encounter
CPT/HCPCS: 76830; 76856

== ENCOUNTER 2024-01-17 06:49 | Day surgery (SDC) | payer OTHER, SELFPAY ==
[2024-01-15 08:55] VITALS: BMI 25.8
--- NOTE | 2024-01-17 | PATH_ITS ---
[facility] Accession Number: [id number] No. of containers..01 Tissue . 01 Material submitted: . endometrium - FIBROID, ENDOMETRIAL CURRETTINGS . 01 Diagnosis: FIBROID, ENDOMETRIAL CURETTINGS: Abundant fragments of myometrium; negative for significant atypia. Negative for significant cytologic atypia, increased mitotic activity, or regions of necrosis. Findings are consistent with a leiomyoma, in the appropriate clinical setting. [facility] 01/21/2024 1019 Local . 01 Electronically signed: . Anne Haider MD, Pathologist NPI- [id number] . 01 Gross description: . Received in formalin, labeled with two patient identifiers and designated fibroid, endometrial curetting, and consists of a 3.2 x 2.2 x 0.6 cm aggregate of white, morcellated, and friable fibrotic tissue admixed with rhodes to clear mucus. The specimen is filtered and entirely submitted in cassettes A1 and A2. ([id number]) /FRR 01/18/2024 1400 Local . 01 Pathologist provided ICD-10: N93.9, N84.0 . 01 CPT . 064838 Specimen Comment: A courtesy copy of this report has been sent to [phone] Performed at: [address] [address], [place], [place] [id number] MD Alan Krishna MD Phone: [phone]
[2024-01-17 07:12] VITALS: BP 140/87; PULSE 71; RESP 21; TEMP 36.4; O2SAT 97; BMI 25.5
[2024-01-17] MEDS: ACETAMINOPHEN 325 MG TABLET 975 MG PO (07:34)
[2024-01-17] MEDS: LACTATED RINGERS 1,000 ML 21 ML IV (07:35)
--- NOTE | 2024-01-17 07:44 | PM.GYNHP.1 ---
History of Present Illness History of Present Illness Reason for admission: vaginal bleeding (Heavy and prolonged) Narrative: Vee Caraballo is a 48 year old female 2 para 2 who presents for a B and C hysteroscopy, Mirena removal, MyoSure resection of polyp versus fibroid, NovaSure endometrial ablation. This is being done due to heavy and prolonged bleeding. Failed IUD. Has not of polyp versus fibroid [facility] Medical History Plantar warts Allergies Depression (~1996) Fractures Chicken pox Abnormal Pap smear of cervix (~1999) Melanoma Surgical History Anesthesia History of oral surgery [place] teeth removed History of skin surgery History of section Family History Father Cancer Mother Hypertension History of heart disease Social History household members: spouse Smoking Status: Never smoker second hand exposure: No alcohol intake: never substance use type: does not use Meds Home Medications and Allergies Home Medications Medication Instructions Recorded Confirmed Type levonorgestrel 21 mcg/24 hr (up to intrauterine 04/30/23 10/28/23 History 8 years) 52 mg intrauterine device (Mirena) Allergies Allergy/AdvReac Type Severity Reaction Status Date / Time ADHESIVE Allergy Mild Uncoded 01/17/24 07:11 Exam Vital Signs (past 8 hours): - 01/17/24 07:12 Temperature 97.5 F L Pulse Rate 71 Respiratory Rate 21 Blood Pressure 140/87 Pulse Oximetry 97 Oxygen Delivery Method Room Air Oxygen Delivery Method Room Air Narrative Exam Narrative: HEENT: No thyromegaly, no anterior cervical or supraclavicular lymphadenopathy. Lungs: Clear to auscultation bilaterally, no wheezes. Cardiovascular: Regular rate and rhythm, no murmurs, rubs, or gallops. Abdomen: No scars. No hepatosplenomegaly. No masses palpable. External genitalia: Deferred to OR Vagina: Deferred to OR Cervix: Deferred to OR Bimanual exam: 8 Week size anteverted uterus. Mobile. Extremities: No edema Assessment & Plan Assessment & Plan narrative: Assessment: 48-year-old 2 para 2 and heavy bleeding Failed IUD Fibroid versus polyp Plan: IUD removal, D&C hysteroscopy with resection polyp versus fibroid and NovaSure endometrial ablation The risks, benefits, and is to the procedure were explained patient bleeding, infection and uterine perforation she understands these risks agrees proceed. A full par Q was held and consent was signed. Time-Based Coding :: [TOTAL MINUTES] spent with patient and on the chart (including review of chart, obtaining history, exam, reviewing outside data, placing orders, documenting exam and treatment plan, and counseling patient) on [DATE].
--- NOTE | 2024-01-17 08:00 | PM.PREOP ---
Pre-operative Note Interval Note History & Physical reviewed/Exam performed by Physician: Yes Changes to H&P: No H&P completed within 30 days and has changed as indicated here:: 01/17/24
--- NOTE | 2024-01-17 08:50 | SUR.OPER ---
Lithotomy on padded OR bed, head on pillow, arms secured on padded arm boards at <90 degrees abduction. Legs secured in padded yellow fins stirrups.
--- NOTE | 2024-01-17 08:52 | PM.GYNOP.1 ---
Operative Date/Time/Diagnoses Date of procedure: 01/17/24 Time of procedure: 08:52 Pre-op diagnosis: Menorrhagia Submucosal fibroid Possible polyp Post-op diagnosis: same Procedure & Clinicians Procedure: Procedures Operation Date: 01/17/24 07:45 Actual Procedure Side Surgeon p Hysteroscopy, Myosure resection of fibroid, Novasure Endometrial Ablation Not Applicable Geraldine Lim MD Indications: 48-year-old 4 para 2 with menorrhagia and a submucosal fibroid on ultrasound and possible polyp. Surgeon: Geraldine Lim Anesthesia Type: General (LMA) Operative Notes Findings: 8 week size anteverted uterus Both fallopian tube ostia observed Posterior submucosal fibroid Closure Type: not applicable Specimen(s): endometrial curettings (And fibroid) Estimated blood loss (mL): 5 Blood products transfused: none Procedure in detail: After informed consent was obtained, the patient was taken to the operating room where she was placed in the dorsal supine position. After adequate LMA general anesthesia was achieved, she was placed in the dorsal lithotomy position, and prepped and draped in the usual sterile fashion. A time-out was performed. A bivalve speculum was placed into the vagina and the anterior lip of the cervix was grasped with a single-tooth tenaculum. The cervical os was sequentially dilated to the # 8 Hegar dilator. The MyoSure scope passed easily into the endometrial cavity. Both fallopian tube ostia were observed. There was a posterior submucosal fibroid measuring 2 cm. Using the MyoSure XL, the fibroid was resected. Endometrial curettings were also obtained. The MyoSure scope was removed from the uterus. The uterus was measured from the internal os to the fundus and measured 4.5cm. The NovaSure catheter passed easily into the endometrial cavity and was opened. The width of the uterus was 3 cm. Both of these were set on the generator which indicated a power of 102 w. The cervix was capped, the cavity assessment was performed and passed. The cycle was initiated and lasted 72 seconds. The NovaSure catheter was closed and removed from the uterus. The single-tooth tenaculum was removed from the anterior lip of the cervix. The bivalve speculum was removed from the vagina. Sponge, lap, and instrument counts were correct x2. The patient tolerated the procedure well, and was taken to PACU in stable condition. Total fluid used 730 cc. Fluid deficit 110 cc. Max pressure 80 mmHg. Cutting time 32 seconds. Complications: none Post-operative Condition: stable Disposition: PACU Plan for aftercare: Home after recovery
[2024-01-17 08:53] VITALS: BP 120/80; PULSE 62; RESP 16; TEMP 36.2; O2SAT 98
[2024-01-17 08:58] VITALS: BP 120/70; PULSE 60; RESP 16; TEMP 36.2; O2SAT 98
[2024-01-17 09:03] VITALS: BP 122/81; PULSE 58; RESP 16; TEMP 36.2; O2SAT 98
[2024-01-17 09:13] VITALS: BP 122/80; PULSE 68; RESP 16; TEMP 36.2; O2SAT 98
[2024-01-17 09:24] VITALS: BP 122/72; PULSE 60; RESP 16; TEMP 36.2; O2SAT 98
== END 2024-01-17 09:26 | disposition home or self-care (01) ==
PROVIDERS: Family Provider Registered Nurse Diabetes Educator; PCP Registered Nurse Diabetes Educator; Referring Provider Obstetrics & Gynecology; Visit Provider Obstetrics & Gynecology
PROC: 0U5B8ZZ Destruction of Endometrium, Via Natural or Artificial Opening Endoscopic (ICD-10-PCS; CPT 58563; principal; 2024-01-17 07:45)
DX: N93.9 Abnormal uterine and vaginal bleeding, unspecified (principal); D25.0 Submucous leiomyoma of uterus
CPT/HCPCS: 58561; 58563; J1100; J1885; J2250; J2405; J2704; J3010

== ENCOUNTER → 2024-04-06 16:58 | Outpatient (CLI) | payer OTHER, SELFPAY ==
[2024-04-09 14:36] LABS: Candida species Negative (Negative); Gardnerella vaginalis Negative (Negative); Trichomoas vaginalis Negative (Negative)
== END ==
PROVIDERS: Family Provider Registered Nurse Diabetes Educator; PCP Registered Nurse Diabetes Educator; Visit Provider Obstetrics & Gynecology
DX: N89.8 Other specified noninflammatory disorders of vagina (principal)
CPT/HCPCS: 87070; 87205; 87480; 87510; 87660

== ENCOUNTER → 2024-07-13 07:36 | Outpatient (CLI) | payer OTHER, SELFPAY ==
--- NOTE | 2024-07-13 07:37 | DI.RAD.S_ITS ---
PROCEDURE: XR CHEST 2V INDICATIONS: coughing TECHNIQUE: 2 views of the chest were acquired. COMPARISON: [facility], [place], XR CHEST 2V, 08/04/2019, 15:05. FINDINGS: FINDINGS: Surgical changes and devices: None. Lungs and pleura: Lungs are clear. No pleural effusions or pneumothorax. Peribronchial cuffing. Mediastinum: Mediastinal contours are normal. Heart size is normal. Bones and chest wall: No suspicious bony abnormalities. Soft tissues appear unremarkable. IMPRESSION: Peribronchial cuffing, typically indicating infectious or inflammatory bronchitis. Dictated by: Justin Angela M.D. on 07/13/2024 at 9:42 Approved by: Justin Angela M.D. on 07/13/2024 at 9:43
== END ==
PROVIDERS: Family Provider Registered Nurse Diabetes Educator; PCP Registered Nurse Diabetes Educator; Referring Provider Nurse Practitioner Family; Visit Provider Nurse Practitioner Family
DX: R05.9 Cough, unspecified (principal)
CPT/HCPCS: 71046